=== PATIENT | male | born 1985 | race Caucasian/White ===

== ENCOUNTER 2016-12-29 09:27 | Emergency (ER) | payer BC ==
--- NOTE | 2016-12-29 09:50 | EDM.PDOC ---
ED HPI Trauma - General Chief Complaint: Lower Extremity Injury/Pain Stated Complaint: FOOT Time Seen by Provider: 12/29/16 09:42 - History of Present Illness INITIAL COMMENTS - FREE TEXT/NARRATIVE: HISTORY AND PHYSICAL: History of present illness: Patient is a healthy 31-year-old male who presents with complaints of pain to his right foot that started last evening after he kicked a large dog is involved in a fight with another dog. Patient states these are his own dogs were fighting and the dog is fine but he had pain immediately to his foot at the distal aspect of the metatarsals on the ball of the foot. He was wearing a slipper at the time of this event. Patient has a history of having a fracture in that foot in the past injury when he was a child doing well otherwise. He has no neurovascular changes in the foot and no proximal ankle leg knee or hip pain. He used ice all night but took no medications for pain last evening or today. Patient states he's been trying not to walk on the ball of the foot has been rolling his foot laterally. The patient denies any other systemic complaints or injuries. Review of systems: As per history of present illness and below otherwise all systems reviewed and negative. Past medical history: As per history of present illness and as reviewed below otherwise noncontributory. Surgical history: As per history of present illness and as reviewed below otherwise noncontributory. Social history: No reported history of drug or alcohol abuse. Family history: As per history of present illness and as reviewed below otherwise noncontributory. Physical exam: General: Well-developed well-nourished male who is nontoxic vital signs of the note by me. HEENT: Atraumatic, normocephalic, negative for conjunctival pallor or scleral icterus, mucous membranes moist, throat clear, neck supple, nontender, trachea midline. Lungs: Clear to auscultation, breath sounds equal bilaterally, chest nontender. Heart: S1S2, regular rate and rhythm no overt murmurs Abdomen: Soft, nondistended, nontender. NABS Pelvis: Stable nontender. No lateral hip tenderness Genitourinary: Deferred. Rectal: Deferred. Extremities: Atraumatic except for some soft tissue swelling at the dorsal aspect of the left foot with slight ecchymosis seen but there is nothing on the sole side of the foot. There is no palpable bony deformities but there is tenderness in this region. There is no proximal metatarsal calcaneal ankle pain or tenderness and no more proximal leg knee or hip tenderness on palpation the legs are, negative for cords or calf pain. Neurovascular unremarkable. Patient has no toe tenderness and is able to wiggle and move his toes. Neuro: Awake, alert, oriented. Cranial nerves II through XII unremarkable. Cerebellum unremarkable. Motor and sensory unremarkable throughout. Exam nonfocal. Diagnostics: X-ray left foot Therapeutics: Patient declined pain meds Ortho boot and crutches Impression: Left foot injury rule out hairline third and fourth metatarsal fracture Definitive disposition and diagnosis as appropriate pending reevaluation and review of above. Allergies/ADRs: Allergies No Known Allergies Allergy (Verified 12/29/16 09:41) Home Medications: Ambulatory Orders . [No Known Home Meds] 12/29/16 [Confirmed 12/29/16] Past Medical History - Past Health History Medical/Surgical History: Denies Medical/Surgical History - Infectious Disease History Infectious Disease History: Reports: Chicken pox Social & Family History - Family History Family Medical History: Noncontributory - Tobacco Use Smoking Status *Q: Never Smoker - Caffeine Use Caffeine Use: Reports: Coffee, Soda - Alcohol Use Days Per Week of Alcohol Use: 7 Number of Drinks Per Day: 1 Total Drinks Per Week: 7 - Recreational Drug Use Recreational Drug Use: No Review of Systems - Review of Systems Review Of Systems: ROS reveals no pertinent complaints other than HPI. Trauma Exam - Physical Exam Exam: See Below (See dictation) Course - Vital Signs Last Recorded V/S: Last Vital Signs Temp 36.2 C 12/29/16 09:38 Pulse 81 12/29/16 09:38 Resp 16 12/29/16 09:38 BP 137/92 H 12/29/16 09:38 Pulse Ox 94 L 12/29/16 09:38 - Orders/Labs/Meds Orders: Active Orders 24 hr Category Date Time Status DME for Discharge [COMM] Stat Oth 12/29/16 10:35 Ordered Departure - Departure Time of Disposition: 10:47 Disposition: Home, Self-Care 01 Condition: good Clinical Impression: Injury of left foot Qualifiers: Encounter type: initial encounter Qualified Code(s): S99.922A - Unspecified injury of left foot, initial encounter Metatarsal bone fracture Qualifiers: Encounter type: initial encounter Metatarsal bone: unspecified metatarsal Fracture type: closed Fracture alignment: nondisplaced Laterality: left Qualified Code(s): S92.302A - Fracture of unspecified metatarsal bone(s), left foot, initial encounter for closed fracture Forms: ED Department Discharge Additional Instructions: The following information is given to patients seen in the emergency department who are being discharged to home. This information is to outline your options for follow-up care. We provide all patients seen in our emergency department with a follow-up referral. The need for follow-up, as well as the timing and circumstances, are variable depending upon the specifics of your emergency department visit. If you don't have a primary care physician on staff, we will provide you with a referral. We always advise you to contact your personal physician following an emergency department visit to inform them of the circumstance of the visit and for follow-up with them and/or the need for any referrals to a consulting specialist. The emergency department will also refer you to a specialist when appropriate. This referral assures that you have the opportunity for followup care with a specialist. All of these measure are taken in an effort to provide you with optimal care, which includes your followup. Under all circumstances we always encourage you to contact your private physician who remains a resource for coordinating your care. When calling for followup care, please make the office aware that this follow-up is from your recent emergency room visit. If for any reason you are refused follow-up, please contact the [facility] emergency department at and ask to speak to the emergency department charge nurse. Dr Moises Cho [address] [place] [id number] [facility] Special[facility] clinic- Podiatry [address] [place] [id number] Fax: [phone] Ice and elevate the foot as much as possible and use [id number] Tylenol/ ibuprofen. Please use ortho boot at all times and lucent remove at sleep times. Use crutches as much as possible and please call and followup with our contract management specialist using resources given to today. Return to ER as needed and as discussed - My Orders Last 24 Hours: My Active Orders 12/29/16 10:35 DME for Discharge [COMM] Stat - Assessment/Plan Last 24 Hours: My Active Orders 12/29/16 10:35 DME for Discharge [COMM] Stat
[2016-12-29 09:55] VITALS: BP 137/92
--- NOTE | 2016-12-29 10:23 | CR ---
EXAMINATION: Right foot HISTORY: Pain COMPARISON: None TECHNIQUE: 3 views FINDINGS/IMPRESSION: There are possibly faint lucencies within the third and fourth metatarsals, onl y noted on single views, these could represent hairline fractures, alternatively these may be artifa ctual. Otherwise there is no acute osseous abnormality, dislocation, or fracture identified. Bone mi neralization appears normal.
== END 2016-12-29 10:57 | disposition home or self-care (01) ==
LOC: MW.ED 09:27
DX: S92.302A Fracture of unspecified metatarsal bone(s), left foot, initial encounter for closed fracture (principal); W54.1XXA Struck by dog, initial encounter
CPT/HCPCS: 73630-26-RT; 73630-RT; 99283

== ENCOUNTER 2021-04-21 19:59 | Emergency (ER) | payer BC ==
--- NOTE | 2021-04-21 20:30 | EDM.PDOC ---
ED HPI GENERAL MEDICAL PROBLEM - General Chief Complaint: Fever Stated Complaint: FEVER Time Seen by Provider: 04/21/21 20:11 - History of Present Illness INITIAL COMMENTS - FREE TEXT/NARRATIVE: History of present illness: [] This patient is a fever for 4 days. He goes from 98 203 up and down several times every day. He does not really have symptoms. He exerted himself up until 5 days ago with friends from out of town [employer] and spent a lot of time outdoors in the heat. He has no symptoms to suggest a fever cause. He does cough but he coughs off and on anyway. He has a pain in his lower occipital area in the back of his neck when he coughs and he has a history of smoking until 4 days ago he stopped because it bothered him. Review of systems: As per history of present illness and below otherwise all systems reviewed and negative. Past medical history: As per history of present illness and as reviewed below otherwise noncontributory. Surgical history: As per history of present illness and as reviewed below otherwise noncontributory. Social history: No reported history of drug or alcohol abuse. Family history: As per history of present illness and as reviewed below otherwise noncontributo ry. Physical exam: Constitutional - well developed, well-nourished and in no acute distress HEENT - normocephalic, no evidence of trauma - external nose and mouth normal - no mass in neck and no JVD - mucosae moist EYES - full EOM, PERRL, no icterus - no evidence of inflammation, injection, or drainage Respiratory - no respiratory distress, equal bilateral expansion, lungs clear to auscultation and no abnormal lung sounds Cardiovascular - Regular Rhythm with S1 and S2 appreciated and no murmur, gallop or rub. GI - abdomen soft without distension or organomegaly - normal bowel sounds - no guard or rebound Musculoskeletal no gross deformity of long bones or joints - no tenderness, swelling or edema Neurologic - Alert and oriented times four - CN II-XII grossly intact - motor sensory and coordination symmetrically normal Psychiatric - appropriate mood and affect with normal thought content Hematologic - No petechiae or purpura - mucosa appropriate color and sclera not pale - normal nail bed color and refill Integument - no rash or evidence of trauma - normal turgor Diagnostics: [] Therapeutics: [] Impression: [] Plan: [] Definitive disposition and diagnosis as appropriate pending reevaluation and review of above. 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 [No Known Home Meds] 12/29/16 [History] Past Medical History - Past Health History Medical/Surgical History: Denies Medical/Surgical History HEENT History: Reports: None Cardiovascular History: Reports: None Respiratory History: Reports: None Gastrointestinal History: Reports: None Genitourinary History: Reports: None Musculoskeletal History: Reports: None Neurological History: Reports: None Psychiatric History: Reports: None Endocrine/Metabolic History: Reports: None Insulin Pump Model and Supervisor Hand Workers: None Hematologic History: Reports: None Immunologic History: Reports: None Oncologic (Cancer) History: Reports: None Dermatologic History: Reports: None - Infectious Disease History Infectious Disease History: Reports: Chicken Pox - Past Surgical History Head Surgeries/Procedures: Reports: None Social & Family History - Family History Family Medical History: No Pertinent Family History - Tobacco Use Tobacco Use Status *Q: Unknown Ever Used Tobacco - Caffeine Use Caffeine Use: Reports: Coffee - Recreational Drug Use Recreational Drug Use: No ED ROS GENERAL - Review of Systems Review Of Systems: Comprehensive ROS is negative, except as noted in HPI. ED EXAM, GENERAL - Physical Exam Exam: See Below Free Text/Narrative:: My physical exam is in the HPI Course - Vital Signs Text/Narrative:: I did not find any reason on the blood count of the Covid test to be concerned as long as the patient does not have any serious symptoms. He does not have any tick bite rash or arthralgias. Patient is discharged and will follow up with Pat AMEZQUITA. Last Recorded V/S: Last Vital Signs Temp 36.1 C 04/21/21 20:05 Pulse 91 04/21/21 20:05 Resp 18 04/21/21 20:05 BP 126/82 04/21/21 20:05 Pulse Ox 96 04/21/21 20:05 - Orders/Labs/Meds Labs: Laboratory Tests 04/21/21 04/21/21 Range/Units 21:09 22:00 WBC 5.03 (4.0-11.0) K/uL RBC 5.32 (4.50-5.90) M/uL Hgb 16.9 (13.0-17.0) g/dL Hct 46.6 (38.0-50.0) % MCV 87.6 (80.0-98.0) fL MCH 31.8 (27.0-32.0) pg MCHC 36.3 (31.0-37.0) g/dL RDW Std Deviation 43.5 (28.0-62.0) fl RDW Coeff of Kassi 13 (11.0-15.0) % Plt Count 93 L (150-400) K/uL MPV 9.70 (7.40-12.00) fL Neut % (Auto) 69.4 (48.0-80.0) % Lymph % (Auto) 17.5 (16.0-40.0) % [place] % (Auto) 12.5 (0.0-15.0) % Eos % (Auto) 0.4 (0.0-7.0) % Baso % (Auto) 0.2 (0.0-1.5) % Neut # (Auto) 3.5 (1.4-5.7) K/uL Lymph # (Auto) 0.9 (0.6-2.4) K/uL [place] # (Auto) 0.6 (0.0-0.8) K/uL Eos # (Auto) 0.0 (0.0-0.7) K/uL Baso # (Auto) 0.0 (0.0-0.1) K/uL Nucleated RBC % 0.0 /100WBC Nucleated RBCs # 0 K/uL SARS-CoV-2 RNA (DANTE) NEGATIVE (NEGATIVE) Departure - Departure Time of Disposition: 23:06 Disposition: Home, Self-Care 01 Condition: Good Clinical Impression: Fever - Discharge Information Instructions: Fever, Adult, [id number] Referrals: Dannie Saavedra MD [Primary Care Provider] - Forms: ED Department Discharge Additional Instructions: [facility] - Primary Care [address] [place] [id number] [facility] [address] [place] [id number] The following information is given to patients seen in the emergency department who are being discharged to home. This information is to outline your options for follow-up care. We provide all patients seen in our emergency department with a follow-up referral. The need for follow-up, as well as the timing and circumstances, are variable depending upon the specifics of your emergency department visit. If you don't have a primary care physician on staff, we will provide you with a referral. We always advise you to contact your personal physician following an e mergency department visit to inform them of the circumstance of the visit and for follow-up with them and/or the need for any referrals to a consulting specialist. The emergency department will also refer you to a specialist when appropriate. This referral assures that you have the opportunity for follow-up care with a specialist. All of these measure are taken in an effort to provide you with op timal care, which includes your follow-up. Under all circumstances we always encourage you to contact your private physician who remains a resource for coordinating your care. When calling for follow-up care, please make the office aware that this follow-up is from your recent emergency room visit. If for any reason you are refused follow-up, please contact the [facility] Emergency Department at and asked to speak to the emergency department charge nurse. Sepsis Event Note (ED) - Evaluation Sepsis Screening Result: No Definite Risk - Focused Exam Vital Signs: Vital Signs Temp Pulse Resp BP Pulse Ox 04/21/21 20:05 36.1 C 91 18 126/82 96
[2021-04-22 00:50] VITALS: BP 124/88; PULSE 89
== END 2021-04-21 23:21 | disposition home or self-care (01) ==
LOC: MW.ED 19:59
DX: R50.9 Fever, unspecified (principal); Z20.822 Contact with and (suspected) exposure to COVID-19
CPT/HCPCS: 36415; 85025; 99283; U0002